=== PATIENT | male | born 2000 | race Caucasian/White ===

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

== ENCOUNTER 2023-08-16 23:37 | Emergency (ER) | payer MEDICAID, OTHER ==
--- NOTE | 2023-08-17 00:01 | ED Physician Documentation ---
PD HPI SKIN - Stated complaint Stated Complaint: SPIDER BITE - Chief complaint Chief Complaint: General - History obtained from History obtained from: Patient - Additional information Additional information: HPI from patient. Patient c/o atraumatic painful swelling and erythema to chin x 2 days, gradually increasing in area involved and intensity of pain. Denies fever, denies h/o similar symptoms. Earlier this evening he was able to express pus from the lesion. He presents at this time due to sensation of swelling spreading to jaw (towards bilateral mandibular angles) and sensation of difficulty breathing when lying supine (which is relieved with sitting up). Patient says he walked into a spiderweb earlier in the day the lesion first appeared and he says he felt as though a spider bit his chin at that time. Review of Systems Constitutional: denies: Fever, Chills, Sweats Skin: reports: Lesions PD PAST MEDICAL HISTORY - Past Medical History Past Medical History: No - Past Surgical History Past Surgical History: No - Present Medications Home Medications: Ambulatory Orders Medication Instructions Recorded Confirmed Doxycycline [Vibramycin] 100 mg PO BID #19 tablet 08/17/23 Ibuprofen [Motrin] 800 mg PO Q8H PRN #20 tablet 08/17/23 Oxycodone HCl/Acetaminophen 1 - 2 each PO Q6H PRN #20 tablet 08/17/23 [Percocet 5-325 mg Tablet] - Allergies Allergies/Adverse Reactions: Allergies Allergy/AdvReac Type Severity Reaction Status Date / Time No Known Drug Allergies Allergy Verified 08/16/23 23:55 - Social History Does the pt smoke?: Yes Smoking Status: Light tobacco smoker Does the pt drink ETOH?: No Does the pt have substance abuse?: No - Immunizations Immunizations are current?: Yes - POLST Patient has POLST: No PD ED PE NORMAL - Vitals Vital signs reviewed: Yes - General General: Alert and oriented X 3, No acute distress, Well developed/nourished PD ED PE EXPANDED - HEENT HEENT Visual: 1 - abscess (confluent, raised, tender erythema with fluctuance and pus drainage from central punctate opening), swelling, tenderness Results - Vitals Vitals: Vital Signs - 24 hr 11/10/23 11/11/23 11/11/23 23:52 00:01 02:00 Temperature 37.4 C 37.4 C Heart Rate 132 H 108 H Respiratory 18 18 18 Rate Blood Pressure 149/88 H 153/116 H O2 Saturation 98 99 Oxygen O2 Source Room air - Labs Labs: Microbiology 08/17/23 03:30 Wound Culture - Preliminary Abscess - Rads (name of study) CT neck (soft tissue) Relevant Findings:: Prelim report reviewed, See rad report Procedures - Abscess I&D (location) Face Preparation: Chlorhexadine, Lidocaine 1% Incision: Incised with scalpel, Purulent drainage, Irrigated, Culture obtained Other: Pt tolerated well, Dressing applied, Antibiotic prescribed PD Medical Decision Making - ED course Complexity details: reviewed results, re-evaluated patient, considered differential, d/w patient ED course: No evidence on exam of shanthi's angina (no obvious erythema nor edema of neck, no elevation of floor of mouth, no tongue swelling) with the exception of slightly muffled voice. CT neck (soft tissue) does not evidence spread of the infection beyond the chin. There is scant purulent drainage but fluctuance and firm margins suggest significant abscess remains and thus I+D performed as above with moderate amount of pus return. He is given 3 grams IV unasyn, 100mg PO doxycycline, take-home pack of percocet, and rx for percocet and doxycycline. Patient was also given 1 mg IV dilaudid prior to I+D. Return precautions discussed. Advised to contact PCP to arrange for next available appointment, ideally wound check in 2-3 days Departure - Departure Disposition: Home, Self Care Clinical Impression: Abscess Condition: Good Instructions: ED Abscess IandD Prescriptions: Ibuprofen [Motrin] 800 mg PO Q8H PRN #20 tablet PRN Reason: PAIN &/OR FEVER Oxycodone HCl/Acetaminophen [Percocet 5-325 mg Tablet] 1 - 2 each PO Q6H PRN #20 tablet PRN Reason: pain Doxycycline [Vibramycin] 100 mg PO BID #19 tablet Comments: There is no evidence on the CT scan of the infection having spread beyond what c an be seen on the exam (in other words, the CT scan shows that the infection is localized to the chin). You were given a dose of intravenous antibiotic (Unasyn) in the emergency department, as well as the first dose of an oral antibiotic (doxycycline). I am providing you with prescriptions for Percocet (narcotic/opiate pain medication), a 10-day course of the doxycycline, and ibuprofen 800 mg. Contact your primary care provider when the office next opens to arrange for a follow-up appointment for reevaluation of the infection. Ideally, the wound/infection should be rechecked in 2-3 days if can be arranged. Forms: PCP List Discharge Date/Time: 08/17/23 04:16
[2023-08-17 02:15] VITALS: BP 153/116; O2SAT 99
[2023-08-17] MEDS ORDERED: AMPICILLIN/SULBACTAM 3 GM in SODIUM CHLORIDE 0.9% MINIBAG 100 ML IV STA (02:40)
[2023-08-17] MEDS ORDERED: lidocaine 1% 20 ML MDV SUBQ STA (03:16)
[2023-08-17] MEDS ORDERED: HYDROmorphone 1 MG/ML CARPUJECT IVP STA (03:19)
[2023-08-17] MEDS ORDERED: IBUPROFEN 600 MG TABLET PO STA (03:50)
[2023-08-17] MEDS ORDERED: oxyCODONE/ACET 5/325 Prepack 4 PO STA (03:50)
[2023-08-17] MEDS ORDERED: DOXYCYCLINE 100 MG TABLET PO STA (03:51)
[2023-08-17] MEDS ORDERED: iohexoL-300 100 ML VIAL IVP ONE (03:56)
--- NOTE | 2023-08-17 09:26 | CT Report ---
PROCEDURE: CT neck with contrast INDICATIONS: chin abscess, sensation of throat/neck swelling TECHNIQUE: Helical axial CT of the neck was obtained after an intravenous contrast injection, and re formatted in multiple planes. Radiation dose reduction was achieved using automated exposure control or adjustment of mA and/or kV according to patient size. COMPARISON: None. FINDINGS: Skull Base: The visualized intracranial contents, skull, and orbits are unremarkable. Visualized par anasal sinuses are clear. Pharynx and Larynx: The nasopharyngeal airway is patent and midline. Parapharyngeal soft tissues in cluding palantine tonsils and base of the tongue are normal. Retropharyngeal space unremarkable. No rmal appearance of the false and true vocal cords. Muscles and Fascial Planes: Soft tissue swelling and edema noted in the soft tissues overlying the a nterior mandible, and there is a right paramedian internal soft tissue fluid collection measuring lachelle roximately 2.2 x 1.6 cm which extends from the anterior mandibular cortex with a small extending to t he overlying skin Lymph Nodes: Bilateral submental and deep cervical reactive adenopathy Vasculature: Unremarkable. Submandibular and Parotid Glands: Normal in size and attenuation. Thyroid: Unremarkable. No enlarged or calcified nodules. Bones: No acute fracture. No osteolytic or blastic lesion is evident. Normal bone mineralization. Lung Apices: The visualized lung apices are clear. IMPRESSION: Soft tissue abscess and surrounding cellulitis noted in the soft tissues overlying the anterior chin Associated reactive submandibular and upper deep cervical adenopathy Note: This final report is concordant with the preliminary after-hours interpretation provided by [facility], [facility] Reviewed by: Benny Andujar MD on 08/17/2023 8:25 AM [facility] Approved by: Benny Andujar MD on 08/17/2023 8:25 AM [facility] Station ID: [id number]
== END 2023-08-17 04:16 | disposition home or self-care (01) ==
LOC: ED 23:37
DX: S00.86XA Insect bite (nonvenomous) of other part of head, initial encounter (principal); L02.01 Cutaneous abscess of face; W57.XXXA Bitten or stung by nonvenomous insect and other nonvenomous arthropods, initial encounter; Z72.0 Tobacco use
CPT/HCPCS: 10060; 70491; 87070; 87181; 87205; 96365; 96375; 99283; 99284; A9270; J1170; Q9967